=== PATIENT | female | born 1935 | race Caucasian/White ===

== ENCOUNTER → 2016-05-31 | Outpatient (REF) ==
[~2016-05-31] MED LIST: ACET-2264 PO; AML5T PO; BOSW1POW PO; CALC-671 PO; CEFD300C PO; CHOL10002 PO; CYAN500T2 PO; DICL100G13 TOP; DOCU100C8 PO; FEXO-95 PO; FURO20TA4 PO; GLYC1SUP RC; LD2JL30 TOP; LEVO50TA6 PO; LIDO700A32 TP; MAGN800O PO; MINE3.5O OU; MULT-955 PO; NA P133E22 RC; NAPR220T76 PO; OMEP40CA36 PO; ONDA-50 PO; POLY17PO6 PO; POTA-57 PO; PRAV10TA PO; PROP1DRO OU; SELE200T11 PO; [UNRECOGNIZED DRUG - OTHER] PO
== END ==
LOC: LAB 14:25
PROVIDERS: ATTEND Family Medicine
DX: J02.9 Acute pharyngitis, unspecified (principal)
CPT/HCPCS: 87651

== ENCOUNTER 2016-06-14 16:52 | Inpatient (IN) | payer OTHER ==
[~2016-06-14] VITALS: Ht 160 cm; Wt 55.8 kg
--- NOTE | 2016-06-14 16:55 | NUR ---
1656: Pt. direct admit from the [facility] facility; accompanied by two employees. Pt. is alert; answers questions appropriately; appears very fatigued; pale in coloration; nauseated. Pt. transfers to weigh chair then bed with assist x 2. Pt. states she is allergic to PCN and the pneumonia shot. Admission process continues.
--- NOTE | 2016-06-14 17:05 | NUR ---
Pt. turns emesis bag upside down; gown changed and floor cleaned. Pt. nauseated; transfers to bed with assist x 1. Resp are even and unlabored on room air; current SATs are 96%. Cool cloth; emesis bag; call light close by pt.'s hand. Pt. rests on right side; bed alarm on for safety.
--- NOTE | 2016-06-14 17:10 | NUR ---
[facility] employees have to return to facility; will gather information from admitting paperwork.
[2016-06-14] MEDS ORDERED: ONDANSETRON 2 MG/ML (Z0FRAN) 2 ML VIAL ONE (18:04)
--- NOTE | 2016-06-14 18:05 | NUR ---
Dr. Abarca here.
--- NOTE | 2016-06-14 18:15 | NUR ---
Zofran 4 mg IV given followed by flush. Dr. Abarca at bedside. Pt. answering questions appropriately.
[2016-06-14] MEDS: SODIUM CHLORIDE FLUSH 10 ML SYR IV PRN (18:20)
[2016-06-14 18:34] VITALS: BP 168/88
[2016-06-14] MEDS ORDERED: ONDANSETRON 2 MG/ML (Z0FRAN) 2 ML VIAL IV PRN (18:35)
[2016-06-14] MEDS ORDERED: PROMETHAZINE 25 MG/ML (PHENERGAN) 1 ML VIAL IM PRN (18:35)
[2016-06-14 18:37] VITALS: BP 168/88
[2016-06-14 18:51] LABS: ALBUMIN 4.3 g/dL (3.4-5.0); ANION GAP 17.5 MEQ/L (3-15); CALCULATED IONIZED CALCIUM 3.9 mg/dL (3.8-4.6); TOTAL PROTEIN 7.7 g/dL (6.4-8.5)
[2016-06-14 19:31] VITALS: BP 161/78
[2016-06-14] MEDS ORDERED: SODIUM CHLORIDE 25 ML IV ONE (19:35)
[2016-06-14] MEDS: BISACODYL 10 MG SUPP (DULCOLAX) PR PRN (20:57)
[2016-06-14 21:05] LABS: BILIRUBIN,URINE Negative (Negative); CLARITY,URINE Cloudy; COLOR,URINE Yellow; GLUCOSE, URINE (UA) Trace (Negative); LEUKOCYTE ESTERASE ,URINE 1+ (Negative); UROBILINOGEN,URINE 0.2 mg/dL (0.2-1.0)
[2016-06-14 21:13] LABS: URINE CENTRIFUGED VOLUME 12 mL
--- NOTE | 2016-06-14 22:52 | NUR ---
Pt's telemetry has displayed frequent changes since admission. Pt is presently in a sinus rhythm, rate 90's. Pt has had frequent PVCs. Has changed rhythms multiple times: Accelerated Junctional with inverted p waves, ST depression, A-fib, Sinus Rhythm. Pt's rate has been up to 130's when up and had an episode of ext tachy 160's for 3 seconds. Telemetry history was reviewed with Dr. Phan earlier in the evening after concerns were presented. Also reviewed telemetry history with pt's assigned nurse, CATIE Dumont. Telemetry strips for changes in rhythms placed in chart. Will continue to monitor.
[2016-06-14 23:50] VITALS: BP 138/72
[2016-06-15] MEDS ORDERED: PROMETHAZINE 25 MG/ML (PHENERGAN) 1 ML VIAL IV PRN (00:35)
[2016-06-15 04:00] VITALS: BP 106/58
[2016-06-15 06:03] LABS: MEAN CORPUSCULAR HGB CONC 34.8 g/dL (31.0-37.0); MEAN CORPUSCULAR VOLUME 89 FL (80-100); MEAN PLATELET VOLUME 10.6 FL (6.0-9.5); PLATELET COUNT 195 10^3uL (150-450); WHITE BLOOD COUNT 17.98 10^3uL (4.0-11.0)
--- NOTE | 2016-06-15 06:21 | NUR ---
Patient rests in bed throughout night. Up several times in night to bathroom, gets nauseated when she gets up. This AM states that she is feeling a little better. No needs at this time.
[2016-06-15 06:25] LABS: ALBUMIN 4.1 g/dL (3.4-5.0); ANION GAP 16.9 MEQ/L (3-15); CALCULATED IONIZED CALCIUM 3.8 mg/dL (3.8-4.6); TOTAL PROTEIN 7.4 g/dL (6.4-8.5)
[2016-06-15 06:36] LABS: BAND NEUTROPHILS % 5 % (0-6); EOSINOPHILS % 0 % (0-4); LYMPHOCYTES # 0.7 #; MONOCYTES # 0.7 #; MONOCYTES % 4 % (3-11); SEGMENTED NEUTROPHILS % 84 % (51-67); TOTAL CELLS COUNTED 100
[2016-06-15 06:37] LABS: RBC MORPH NORMAL (NORMAL)
[2016-06-15 07:57] VITALS: BP 127/63
--- NOTE | 2016-06-15 08:17 | NUR ---
Received VORB for Fleets enema from Dr. Phan- Administered at 0809. Pt was able to hold Enema for 8minutes- Is in bathroom now. Only Liquid results- enema solution. Pt requests her daily Suppository- given now. Pt back to bed at this time. Denies n/v at this time.
[2016-06-15] MEDS: ENOXAPARIN 40 MG/0.4 ML (LOVENOX) SYR SC SCH (08:24)
[2016-06-15] MEDS: BISACODYL 10 MG SUPP (DULCOLAX) PR PRN (08:24)
[2016-06-15] MEDS: LIDOCAINE (LIDODERM) 5% PATCH TOP SCH (08:43)
--- NOTE | 2016-06-15 08:51 | NUR ---
Dr. Phan at bedside.
[2016-06-15] MEDS: SODIUM CHLORIDE FLUSH 10 ML SYR IV PRN (09:37)
[2016-06-15] MEDS: cefTRIAXone SODIUM 1,000 MG in SODIUM CHLORIDE 50 ML IV SCH (09:37)
--- NOTE | 2016-06-15 09:40 | NUR ---
NS@75ml/hr started along with Rocephin 1g daily at 150ml/hr.
[2016-06-15] MEDS: LIDOCAINE PF 1% (XYLOCAINE) 2 ML VIAL INJ PRN ×2 (10:01→11:03)
[2016-06-15] MEDS: POTASSIUM CL IVPB 50 ML IV SCH ×2 (10:01→11:03)
--- NOTE | 2016-06-15 10:03 | NUR ---
Potassium bag 1 of 2 infusing at this time as ordered. WIll cont to monitor patient. She is currently resting in bed, eyes closed- no s/s distress.
--- NOTE | 2016-06-15 11:03 | NUR ---
Potassium bag 2 of 2 infusing now
[2016-06-15] MEDS: POLYETHYLENE GLYCOL 17 GM (MIRALAX) PACKET PO SCH (11:20)
[2016-06-15 11:28] VITALS: BP 110/68
--- NOTE | 2016-06-15 12:11 | NUR ---
Potassium infusion complete at this time. Pt resting in bed, IVF infusing as ordered. Pt has had a small brown loose BM result. Pt worked with PT today- ambulated around room and performed ADL's. Call light within reach. Calls appropriately. Will cont to monitor patient.
--- NOTE | 2016-06-15 14:27 | NUR ---
MED REC COMPLETE--current med list obtained from [facility] program report in patient's chart.
[2016-06-15] MEDS: LEVOTHYROXINE 50 MCG (LEVOTHROID) TABLET PO SCH (15:18)
--- NOTE | 2016-06-15 15:37 | NUR ---
Pt calls for assist to bathroom- ambulates 1 SBA with personal wheeled walker- gait steady, balance steady. Voids 150ml yellow very cloudy urine. Requests to lay back in bed- feels "tired". Call light within reach. Denies further needs.
[2016-06-15 15:42] VITALS: BP 122/66
[2016-06-15] MEDS: ACETAMINOPHEN 325 MG TAB (TYLENOL) PO PRN (16:43)
--- NOTE | 2016-06-15 16:43 | NUR ---
Tylenol 650mg PO given for c/o bilat knee pain- states this is chronic after her knee surgeries.
--- NOTE | 2016-06-15 18:12 | NUR ---
Pt sitting on edge of bed, enjoying her full liquid supper tray- states that she was craving tomato soup. Denies n/v or abd pain. Has not had any more BM's this afternoon. NS infusing 75ml/hr without difficulty. Call light within reach.
--- NOTE | 2016-06-15 18:21 | NUR ---
Pt only took sips of full liquid diet. Verbalizes fears of eating/drinking "too much for my stomach".
[2016-06-15 20:50] VITALS: BP 101/55
[2016-06-15] MEDS ORDERED: LIDOCAINE PATCH REMOVAL TOP SCH (21:00)
[2016-06-15] MEDS ORDERED: METOCLOPRAMIDE 10 MG/2 ML (REGLAN) VIAL IV PRN (21:35)
[2016-06-15] MEDS ORDERED: NICOTINE 7 MG (NICODERM) PATCH TD PRN (21:35)
[2016-06-16 00:29] VITALS: BP 110/74
[2016-06-16] MEDS: ACETAMINOPHEN 325 MG TAB (TYLENOL) PO PRN (04:17)
[2016-06-16 04:27] VITALS: BP 143/72
[2016-06-16] MEDS: LEVOTHYROXINE 50 MCG (LEVOTHROID) TABLET PO SCH (06:11)
[2016-06-16 06:23] LABS: BASOPHILS % (AUTO) 0 % (0-2); EOSINOPHILS # (AUTO) 0.1 10^3uL; EOSINOPHILS % (AUTO) 1 % (0-4); LYMPHOCYTES # (AUTO) 2.1 X10^3; MEAN CORPUSCULAR HEMOGLOBIN 30.6 PG (26.0-34.0); MEAN CORPUSCULAR HGB CONC 33.8 g/dL (31.0-37.0); MEAN CORPUSCULAR VOLUME 91 FL (80-100); MEAN PLATELET VOLUME 11.1 FL (6.0-9.5); MONOCYTES # (AUTO) 0.9 X10^3; MONOCYTES % (AUTO) 13 % (3-11); NEUTROPHILS # (AUTO) 4.1 X10^3; NEUTROPHILS % (AUTO) 57 % (51-67); PLATELET COUNT 178 10^3uL (150-450); WHITE BLOOD COUNT 7.23 10^3uL (4.0-11.0)
--- NOTE | 2016-06-16 06:29 | NUR ---
Patient rests in bed throughout night. No reports of nausea and minimal pain noted. No needs at this time.
[2016-06-16 06:48] LABS: ALBUMIN 2.7 g/dL (3.4-5.0); ANION GAP 10.6 MEQ/L (3-15); CALCULATED IONIZED CALCIUM 4.5 mg/dL (3.8-4.6); TOTAL PROTEIN 5.2 g/dL (6.4-8.5)
[2016-06-16 08:02] VITALS: BP 132/68
[2016-06-16] MEDS: POLYETHYLENE GLYCOL 17 GM (MIRALAX) PACKET PO SCH (08:52)
[2016-06-16] MEDS: BISACODYL 10 MG SUPP (DULCOLAX) PR PRN (08:53)
[2016-06-16] MEDS: SODIUM CHLORIDE FLUSH 10 ML SYR IV PRN (08:53)
[2016-06-16] MEDS: ENOXAPARIN 40 MG/0.4 ML (LOVENOX) SYR SC SCH (08:53)
[2016-06-16] MEDS: cefTRIAXone SODIUM 1,000 MG in SODIUM CHLORIDE 50 ML IV SCH (08:53)
[2016-06-16] MEDS: LIDOCAINE (LIDODERM) 5% PATCH TOP SCH (08:53)
--- NOTE | 2016-06-16 09:00 | NUR ---
Pt given Bisacodyl Supp at her request for constipation- Denies having any more BM's overnight. Denies n/v or abd pain. States "I feel so much better than yesterday, but I just feel so weak." Will cont to monitor patient. IV SL flushes without difficulty- Rocephin 1g IV infusing as ordered. Call light within reach.
--- NOTE | 2016-06-16 09:36 | NUR ---
Pt to shower with [employer]ROAT PHYSICIAN
--- NOTE | 2016-06-16 10:02 | NUR ---
Encouraged pt to sit up in chair for awhile- she refused. States "I just want to lay down."
[2016-06-16 11:14] VITALS: BP 136/70
--- NOTE | 2016-06-16 13:27 | NUR ---
24g IV dc'd from [facility] for dismissal. Tip intact, site without redness/swelling. SIte not bleeding. Dressing self for dismissal.
--- NOTE | 2016-06-16 14:15 | NUR ---
Discharge instructions reviewed with patient. Copies given to her. Script x1 for Cefdinir given to [facility] tilt tray driver at request of patient so that [facility] can fill script tomorrow AM. Vilma Pierre Pharmacist reviewed Med Rec with patient- verbalizes understanding.
--- NOTE | 2016-06-16 14:23 | NUR ---
Pt dismissed to home via ambulation accompanied by [facility] transportation.
== END 2016-06-16 14:22 | disposition home or self-care (01) | DRG 690 ==
LOC: OBSVTOIN 16:52 → MED/SURG 16:52
PROVIDERS: ADMIT Family Medicine; ATTEND Family Medicine
DX: N39.0 Urinary tract infection, site not specified (principal); R07.9 Chest pain, unspecified; R11.2 Nausea with vomiting, unspecified; K59.00 Constipation, unspecified; J02.9 Acute pharyngitis, unspecified; R59.1 Generalized enlarged lymph nodes; F41.1 Generalized anxiety disorder; M79.7 Fibromyalgia; R07.89 Other chest pain; M19.90 Unspecified osteoarthritis, unspecified site; Z96.89 Presence of other specified functional implants
CPT/HCPCS: 36415; 74022; 80053; 81003; 81015; 83690; 83735; 84443; 84484; 85025; 87088; 87186; 87486; 87581; 87633; 87798; 93005; 96361; 96365; 96366; 96367; 96372; 99218

== ENCOUNTER → 2016-06-14 | Outpatient (REF) ==
[2016-06-14 14:56] LABS: BASOPHILS % (AUTO) 0 % (0-2); EOSINOPHILS # (AUTO) 0.1 10^3uL; EOSINOPHILS % (AUTO) 2 % (0-4); LYMPHOCYTES # (AUTO) 2.6 X10^3; MEAN CORPUSCULAR HEMOGLOBIN 30.7 PG (26.0-34.0); MEAN CORPUSCULAR HGB CONC 34.1 g/dL (31.0-37.0); MEAN CORPUSCULAR VOLUME 90 FL (80-100); MEAN PLATELET VOLUME 10.8 FL (6.0-9.5); MONOCYTES # (AUTO) 0.6 X10^3; MONOCYTES % (AUTO) 10 % (3-11); NEUTROPHILS # (AUTO) 3.1 X10^3; NEUTROPHILS % (AUTO) 48 % (51-67); PLATELET COUNT 191 10^3uL (150-450); WHITE BLOOD COUNT 6.42 10^3uL (4.0-11.0)
== END ==
LOC: CLAB.BLUES 14:20
PROVIDERS: ATTEND Family Medicine
DX: R07.9 Chest pain, unspecified (principal)
CPT/HCPCS: 84484; 85025

== ENCOUNTER → 2016-06-27 | Outpatient (REF) | LOC: CLAB.BLUES 11:05 | PROVIDERS: ATTEND Family Medicine | DX: J06.9 Acute upper respiratory infection, unspecified (principal) | CPT/HCPCS: 87651 ==

== ENCOUNTER → 2016-07-08 | Outpatient (REF) ==
[2016-07-08 16:03] LABS: BILIRUBIN,URINE Negative (Negative); CLARITY,URINE Clear; COLOR,URINE Yellow; GLUCOSE, URINE (UA) Negative (Negative); LEUKOCYTE ESTERASE, URINE Trace (Negative); PH,URINE 6.5 (5.0 - 8.0); UROBILINOGEN,URINE 0.2 mg/dL (0.2-1.0)
[2016-07-08 16:45] LABS: RBC,URINE None Seen /HPF; URINE CENTRIFUGED VOLUME 12 mL
== END ==
LOC: CLAB.BLUES 13:34
PROVIDERS: ATTEND Family Medicine
DX: N39.0 Urinary tract infection, site not specified (principal)
CPT/HCPCS: 81003; 81015; 87088